=== PATIENT | male | born 1990 | race African-American/Black ===

== ENCOUNTER 2017-11-06 19:47 | Emergency (ER) | payer OTHER ==
[~2017-11-06] VITALS: Ht 170.2 cm; Wt 81.6 kg
[~2017-11-06 19:47] MED LIST: CYCLOBENZAPRINE10 MG ORAL; IBUPROFEN600 MG ORAL; LOMOTIL TABLET1 EACH ORAL; MECLIZINE HCL25 MG ORAL; ONDANSETRON ODT4 MG ORAL
[2017-11-06] MEDS ORDERED: Augmentin 875mg Tab ORAL ONE (20:30)
[2017-11-06] MEDS ORDERED: Tetanus/Diptheria/Pertussis Vaccine 0.5ml Syr IM ONE (20:30)
[2017-11-06] MEDS ORDERED: AUGMENTIN 875-1 EAC1 ORAL (21:14)
[2017-11-06] MEDS ORDERED: IBUPROFEN600 MG ORAL (21:14)
[2017-11-06 21:26] VITALS: BP 138/75
--- NOTE | 2017-11-10 15:03 | Emergency Room Report ---
History of Present Illness General Chief Complaint: Lower Extremity Injury Source: Patient Present Illness HPI 27 yo M presents to ED c/o Pain to left foot. States that at work today he stepped on a nail which went through his work boot. Tetanus unknown. Denies any other injuries. Pulled out the nail. Pain is throbbing, 8/10, nonradiating. No other aggravating or leading factors. Denies any other associated symptoms Allergies: Coded Allergies: NO KNOWN DRUG ALLERGIES (Unverified Allergy, Unknown, 02/27/15) Patient History Past Medical History: none Past Surgical History: none Pertinent Family History: none Social History: Denies: smoking, alcohol use, drug use Immunizations: UTD Reviewed Nursing Documentation: PMH: Agreed, PSxH: Agreed Nursing Documentation-PMH Hx Hypertension: No Hx Pacemaker: No Hx Asthma: No Hx COPD: No Hx Gastrointestinal Problems: No Hx Dialysis: No Hx Neurological Problems: No Hx Cerebrovascular Accident: No Hx Seizures: No Review of Systems All Other Systems: negative except mentioned in HPI Physical Exam Vital Signs Date Time Temp Pulse Resp B/P (MAP) Pulse Ox O2 Delivery O2 Flow Rate FiO2 11/06/17 19:56 98.8 94 20 138/75 97 Room Air Sp02 EP Interpretation: reviewed, normal General Appearance: no apparent distress, alert, GCS 15, non-toxic Head: normocephalic, atraumatic Eyes: bilateral eye normal inspection, bilateral eye PERRL ENT: hearing grossly normal, normal pharynx, no angioedema, normal voice Neck: full range of motion, supple/symm/no masses Respiratory: chest non-tender, lungs clear, normal breath sounds, speaking full sentences Cardiovascular #1: regular rate, rhythm, no edema Cardiovascular #2: 2+ carotid (R), 2+ carotid (L), 2+ radial (R), 2+ radial (L) , 2+ dorsalis pedis (R), 2+ dorsalis pedis (L) Gastrointestinal: normal bowel sounds, non tender, soft, non-distended, no guarding, no rebound Rectal: deferred Genitourinary: normal inspection, no CVA tenderness Musculoskeletal: tender - puncture wound to sole of L foot. no surrounding induration/erythema Neurologic: alert, oriented x3, responsive, motor strength/tone normal, sensory intact, speech normal Psychiatric: judgement/insight normal, memory normal, mood/affect normal, no suicidal/homicidal ideation Reflexes: 3+ bicep (R), 3+ bicep (L), 3+ tricep (R), 3+ tricep (L), 3+ knee (R) , 3+ knee (L) Skin: normal color, no rash, warm/dry, well hydrated Lymphatic: no adenopathy Medical Decision Making Diagnostic Impression: Primary Impression: Puncture wound ER Course Hospital Course 27 yo M presents ED with puncture wound to left foot stepping on a nail Differential diagnoses include: Cellulitis, dermatitis, insect bite, abscess Clinical course Patient placed on stretcher. After initial history, physical exam reveals a male in no acute distress. On exam there is a site for mild erythema and induration to the sole of L foot. There is no fluctuance. There is no tenderness. tetanus given. wound irrigated. given augmentin Diagnosis - puncture wound stable and discharged to home with Rx Augmentin. Instructed to followup with PMD. Instructed return to ED if symptoms recur or worsen Last Vital Signs Date Time Temp Pulse Resp B/P (MAP) Pulse Ox O2 Delivery O2 Flow Rate FiO2 11/06/17 21:26 98.8 20 138/75 97 Room Air 11/06/17 19:56 94 Status: improved Disposition: HOME, SELF-CARE Condition: Stable Scripts Ibuprofen* (MOTRIN*) 600 Mg Tablet 600 MG ORAL Q8H Y for For Pain, #30 TAB 0 Refills Prov: ALESHA TAPIA M.D. 11/06/17 Amoxicillin/Potassium Clav 875-125* (AUGMENTIN 875-125 TABLET*) 1 Each Tablet 1 TAB ORAL TWICE A DAY, #14 TAB Prov: ALESHA TAPIA M.D. 11/06/17 Referrals: [employer] [facility] (PCP) Patient Instructions: Puncture Wound, [id number] ALESHA TAPIA M.D. Nov 10, 2017 15:03
== END 2017-11-06 21:26 | disposition home or self-care (01) ==
LOC: EMR 20:15
DX: S91.332A Puncture wound without foreign body, left foot, initial encounter (principal); W22.8XXA Striking against or struck by other objects, initial encounter; Y92.89 Other specified places as the place of occurrence of the external cause; Z23 Encounter for immunization
CPT/HCPCS: 90471; 90715; 99283